=== PATIENT | female | born 1985 | race Two or more races ===

== ENCOUNTER 2021-02-14 18:55 | Emergency (ER) | payer SELFPAY ==
[~2021-02-14] VITALS: Ht 157.5 cm; Wt 59.0 kg
[2021-02-14 18:56] VITALS: BP 153/99
== END 2021-02-14 23:40 | disposition left against medical advice (07) ==
LOC: ER 18:59
DX: T25.021A Burn of unspecified degree of right foot, initial encounter (principal); Z53.21 Procedure and treatment not carried out due to patient leaving prior to being seen by health care provider; X08.8XXA Exposure to other specified smoke, fire and flames, initial encounter; Y93.89 Activity, other specified; Y92.89 Other specified places as the place of occurrence of the external cause; Y99.8 Other external cause status